=== PATIENT | female | born 1985 | race African-American/Black ===

== ENCOUNTER 2019-06-04 17:51 | Emergency (ER) | payer BC ==
[~2019-06-04] VITALS: Ht 172.7 cm; Wt 79.8 kg
--- NOTE | 2019-06-04 18:20 | NUR ---
ED Nurse Note: pt was at [place] this weekend and states she saw bed bugs and believes she got bites. bilateral wrist swelling possible allergy to bed bug bite.
[2019-06-04 18:21] VITALS: BP 109/58
--- NOTE | 2019-06-04 18:28 | Emergency Room Report ---
History of Present Illness General Chief Complaint: Allergic Reaction Source: Patient Present Illness HPI 33-year-old female presents to the emergency department complaining of 10 out of 10 severity bilateral pain, swelling, itching, erythema and warmth to both of her hands x 3 days. Patient reports that she slept in a hotel and when she woke up the morning of the she noted to have bites on each hand which are very itchy. Patient reports initially just some mild swelling. She reports she began looking around the room to try to see what bit her. She believes she saw a bedbug on the headboard. She reports her swelling and erythema have been progressive. She states she has been taking Motrin and applying Benadryl cream with no relief of her symptoms. She is up-to-date with her vaccinations. Pt. denies fevers, chills or swollen tender lymph nodes. Denies lesions/ rashes elsewhere on the body. Denies new medications or body washes or creams. Denies swelling of the lips, tongue , throat or airway. Denies wheezing, or shortness of breath. Denies blisters, oral lesions, or sloughing of the skin. Allergies: Coded Allergies: ACETAMINOPHEN (Verified Allergy, Unknown, 06/04/19) Patient History Past Medical History: see triage record Past Surgical History: none Pertinent Family History: none Last Menstrual Period: 05/15/2019 Now: No Reviewed Nursing Documentation: PMH: Agreed; PSxH: Agreed Nursing Documentation-PMH Past Medical History: No Stated History Review of Systems All Other Systems: negative except mentioned in HPI Physical Exam Vital Signs Date Time Temp Pulse Resp B/P (MAP) Pulse Ox O2 Delivery O2 Flow Rate FiO2 06/04/19 18:14 98.2 88 20 109/58 (75) 98 Room Air Sp02 EP Interpretation: reviewed, normal General Appearance: no apparent distress, alert, GCS 15, non-toxic Head: normocephalic, atraumatic Eyes: bilateral eye normal inspection, bilateral eye PERRL ENT: hearing grossly normal, no angioedema, normal voice Neck: full range of motion Respiratory: lungs clear, normal breath sounds, no respiratory distress, no wheezing, speaking full sentences Cardiovascular #1: regular rate, rhythm, normal capillary refill Musculoskeletal: normal range of motion, gait/station normal, tender - dorsum of the bilateral hands, swelling - dorsum of the bilateral hands Neurologic: alert, motor strength/tone normal, oriented x3, sensory intact, responsive, speech normal Psychiatric: judgement/insight normal Skin: other - swelling, erythema, warmth and tenderness to dorsum of the bilateral hands. No blisters or vessicles Medical Decision Making PA Attestation Dr. Johnson is my supervising Physician whom patient management has been discussed with. Diagnostic Impression: Primary Impression: Insect bites of multiple sites, infected ER Course 33-year-old female presents to the emergency department complaining of 10 out of 10 severity bilateral pain, swelling, itching, erythema and warmth to both of her hands x 3 days. Patient reports that she slept in a hotel and when she woke up the morning of the she noted to have bites on each hand which are very itchy. Patient reports initially just some mild swelling. She reports she began looking around the room to try to see what bit her. She believes she saw a bedbug on the headboard. She reports her swelling and erythema have been progressive. She states she has been taking Motrin and applying Benadryl cream with no relief of her symptoms. She is up-to-date with her vaccinations. Pt. denies fevers, chills or swollen tender lymph nodes. Denies lesions/ rashes elsewhere on the body. Denies new medications or body washes or creams. Denies swelling of the lips, tongue , throat or airway. Denies wheezing, or shortness of breath. Denies blisters, oral lesions, or sloughing of the skin. Ddx considered but are not limited to cellulitis, scabies, insect bites, tic bites, spider bites, contact dermatitis, Drug reaction, allergic reaction, fungal infection, lice. Vital signs: are WNL, pt. is afebrile H&PE are most consistent with insect bites to the dorsum of the hands bilaterally with localized allergic reaction in addition to secondary cellulitis. ORDERS: none required at this time, the diagnosis is clinical ED INTERVENTIONS: -Benadryl PO -Keflex PO DISCHARGE: At this time pt. is stable for d/c to home. Will provide printed patient care instructions, and any necessary prescriptions. Care plan and follow up instructions have been discussed with the patient prior to discharge. Last Vital Signs Date Time Temp Pulse Resp B/P (MAP) Pulse Ox O2 Delivery O2 Flow Rate FiO2 06/04/19 18:21 88 20 Room Air 06/04/19 18:21 98.2 109/58 98 Status: improved Disposition: HOME, SELF-CARE Condition: Stable Scripts Ibuprofen* (MOTRIN*) 600 Mg Tablet 600 MG ORAL THREE TIMES A DAY, #30 TAB 0 Refills Prov: Mary Connors 06/04/19 Diphenhydramine Hcl (BENADRYL ALLERGY) 25 Mg Tablet 25-50 MG PO Q6HR, #30 TAB Prov: Mary Connors 06/04/19 Cephalexin* (KEFLEX*) 500 Mg Capsule 500 MG ORAL EVERY 12 HOURS for 7 Days, #14 CAP 0 Refills Prov: Mary Connors 06/04/19 Patient Instructions: Insect Bite Additional Instructions: Take medications as directed. Follow up with a Primary Care Provider in 3-5 days for DERMATOLOGY REFERRAL , even if your symptoms have resolved. --Please review list of primary care clinics, if you do not already have a primary care provider Return sooner to ED if new symptoms occur, or current symptoms become worse. Do not drink alcohol, drive, or operate heavy machinery while taking Benadryl as this may cause drowsiness. - Please note that this Emergency Department Report was dictated using [employer] analyst technology software, occasionally this can lead to erroneous entry secondary to interpretation by the dictation equipment. Mary Connors Jun 04, 2019 18:28
[2019-06-04] MEDS ORDERED: DiphenhydrAMINE 25mg Tab ORAL ONE (18:45)
[2019-06-04] MEDS ORDERED: Cephalexin 500mg cap ORAL ONE (18:45)
[2019-06-04] MEDS ORDERED: IBUPROFEN600 MG ORAL (18:54)
[2019-06-04] MEDS ORDERED: CEPHALEXIN500 MG ORAL (18:54)
[2019-06-04] MEDS ORDERED: BENADRYL ALLERG25 M1 PO (18:54)
[2019-06-04 19:04] VITALS: BP 109/56
--- NOTE | 2019-06-04 19:05 | NUR ---
ER DISCHARGE NOTE: Patient is cleared to be discharged per ERMD, pt is aox4, on room air, with stable vital signs. pt was given dc and prescription instructions, pt was able to verbalize understanding, pt id band removed. pt is able to ambulate with steady gait. pt took all belongings.
== END 2019-06-04 19:04 | disposition home or self-care (01) ==
LOC: EMR 18:20
DX: S60.562A Insect bite (nonvenomous) of left hand, initial encounter (principal); S60.561A Insect bite (nonvenomous) of right hand, initial encounter; W57.XXXA Bitten or stung by nonvenomous insect and other nonvenomous arthropods, initial encounter; Y92.9 Unspecified place or not applicable; Z88.6 Allergy status to analgesic agent
CPT/HCPCS: 99282